=== PATIENT | female | born 1985 | race Caucasian/White ===

== ENCOUNTER 2017-09-06 17:35 | Emergency (ER) | payer MEDICARE, MEDICAID ==
--- NOTE | 2017-09-06 18:36 | RAD ---
Indication: Shortness of breath. 2 views of the chest demonstrate no mediastinal shift. Heart is of normal size and configuration. Lungs are clear. When compared to previous exam of June 16, 2013 no significant change is noted. IMPRESSION: No active cardiopulmonary disease is identified.
[2017-09-06 19:36] LABS: ABS Basophils 0.1 10^3/ul (0-0.2); ABS Eosinophils 0.1 10^3/ul (0-0.6); ABS Lymphocytes 3.8 10^3/ul (1.0-4.8); ABS Monocytes 0.4 10^3/ul (0-0.8); ABS Neutrophils 7.7 10^3/ul (1.5-7.7); ABS Nucleated RBC 0 10^3/ul; Eosinophil % 1.1 % (0-6); Hematocrit 43 % (35-47); Hemoglobin 14.7 g/dl (12.0-16.0); Lymphocyte % 31.3 % (25-47); Mean Corpuscular HGB Conc 34 g/dl (31-36); Mean Corpuscular Hemoglobin 29 pg (27-31); Mean Corpuscular Volume 85 fL (80-97); Mean Platelet Volume 9 um3 (7.4-10.4); Nucleated Red Blood Cells % 0; Platelet Count 243 10^3/ul (150-450); Red Blood Count 5.04 10^6/ul (4.0-5.4); Red Cell Distribution Width 14 % (10.5-15); White Blood Count 12.2 10^3/ul (3.5-10.8)
[2017-09-06 19:48] LABS: EGFR Non-African American 95.1 (>60)
--- NOTE | 2017-09-06 20:24 | ED ---
Aly Payton Gabriel, scribed for Jana Alexander MD on 09/06/17 at 2022 . Progress - Progress Note Progress Note: This patient was signed out from Dr. Causey, pending disposition, awaiting lab results. Lab results reveal no significant abnormalities. The patients condition is stable and will be discharged to home with Dx of atypical CP. Pt will follow up with their PCP. Re-Evaluation - Re-Evaluation First Eval Re-Evaluation Time: 20:21 Change: Improved Comment: The pt's CP has resolved. Course/Dx - Course Course Of Treatment: This patient was signed out from Dr. Causey, pending disposition, awaiting lab results. Lab results reveal no significant abnormalities. The patients condition is stable and will be discharged to home with Dx of atypical CP. Pt will follow up with their PCP. - Diagnoses Provider Diagnoses: Atypical chest pain The documentation as recorded by the Aly lomax Gabriel accurately reflects the service I personally performed and the decisions made by , Jana Alexander MD.
[2017-09-06 21:13] VITALS: BP 122/49
--- NOTE | 2017-09-07 16:07 | ED ---
Zen Payton Angela, scribed for Thor Causey MD on 09/06/17 at 1842 . HPI Chest Pain - HPI Summary HPI Summary: This pt is a 31 y/o female [facility] [place]/o intermittent chest pain for the past few weeks. Pt reports her pain is aggravated with lying down. She describes her chest pain as sharp. She denies any pain currently but states she feels like there is "something" sitting on her chest and has some SOB. Denies nausea or vomiting. PMHx: PE (last one was 4 years ago). Pt is currently on control pills. She is a current smoker. - History of Current Complaint Chief Complaint: EDChestWallPain Time Seen by Provider: 09/06/17 18:37 Hx Obtained From: Patient Hx Last Menstrual Period: 07/03/15 Onset/Duration: Started Weeks Ago, Still Present Timing: Intermittent, Lasting Weeks Current Severity: None Pain Intensity: 0 Pain Scale Used: 0-10 Numeric Chest Pain Location: Diffuse Chest Pain Radiates: No Character: Heaviness, Sharp/Stabbing - sharp Aggravating Factor(s): Nothing Alleviating Factor(s): Spontaneous Resolution Associated Signs and Symptoms: Positive: Chest Pain, Shortness of Breath. Negative: Nausea, Vomiting - Allergy/Home Medications Allergies/Adverse Reactions: Allergies Allergy/AdvReac Type Severity Reaction Status Date / Time sedatives AdvReac Severe Altered Uncoded 09/06/17 17:38 Mental Status narcotics AdvReac Intermediate See Comment Uncoded 09/06/17 17:38 PMH/Surg Hx/FS Hx/Imm Hx Endocrine/Hematology History: Reports: Other Endocrine/Hematological Disorders - history of PE Denies: Hx Anticoagulant Therapy, Hx Diabetes, Hx Thyroid Disease Cardiovascular History: Reports: Other Cardiovascular Problems/Disorders - HX OF PE Denies: Hx Congestive Heart Failure, Hx Hypertension, Hx Pacemaker/ICD Respiratory History: Reports: Hx Pulmonary Embolism, Other Respiratory Problems/ Disorders - PE 02/2013 Denies: Hx Asthma, Hx Chronic Obstructive Pulmonary Disease (COPD) GI History: Reports: Hx Gastroesophageal Reflux Disease History: Denies: Hx Renal Disease Musculoskeletal History: Reports: Other Musculoskeletal History - hip injury 2012 Sensory History: Reports: Hx Contacts or Glasses Opthamlomology History: Reports: Hx Contacts or Glasses Neurological History: Denies: Hx Dementia, Hx Seizures Psychiatric History: Reports: Hx Anxiety, Hx Attention Deficit Hyperactivity Disorder, Hx Eating Disorder - Anorexea, Hx Depression, Hx Post Traumatic Stress Disorder, Hx Bipolar Disorder, Hx Suicide Attempt, Hx of Violent Episodes Against Others, Hx Substance Abuse, Other Psychiatric Issues/Disorders - manic disorder, OCD - Immunization History Date of Tetanus Vaccine: within the last 4 yrs Infectious Disease History: No Infectious Disease History: Reports: History Other Infectious Disease - chlamydia Denies: Hx Hepatitis, Hx Human Immunodeficiency Virus (HIV), Traveled Outside the [place] in Last 30 Days - Family History Known Family History: Positive: Cardiac Disease, Hypertension, Diabetes - Social History Alcohol Use: None Substance Use Type: Reports: Cocaine Substance Use Comment - Amount & Last Used: twice per month Hx Tobacco Use: Yes Smoking Status (MU): Current Every Day Smoker Type: Cigarettes Amount Used/How Often: 1/3 PPD Length of Time of Smoking/Using Tobacco: began at 13 years old Have You Smoked in the Last Year: Yes Review of Systems Negative: Fever, Chills Positive: Chest Pain Positive: Shortness Of Breath Negative: Vomiting, Nausea Skin: Negative Neurological: Negative All Other Systems Reviewed And Are Negative: Yes Physical Exam - Summary Physical Exam Summary: VITAL SIGNS: Reviewed. GENERAL: Patient is an obese female who is lying comfortable in the stretcher with no distress. Patient is not in any acute respiratory distress. HEAD AND FACE: No signs of trauma. No ecchymosis, hematomas or skull depressions. No sinus tenderness. EYES: PERRLA, EOMI x 2, No injected conjunctiva, no nystagmus. EARS: Hearing grossly intact. Ear canals and tympanic membranes are within normal limits. MOUTH: Oropharynx within normal limits. NECK: Supple, trachea is midline, no adenopathy, no JVD, no carotid bruit, no c- spine tenderness, neck with full ROM. CHEST: Symmetric, no tenderness at palpation LUNGS: Clear to auscultation bilaterally. No wheezing or crackles. CVS: Regular rate and rhythm, S1 and S2 present, no murmurs or gallops appreciated. ABDOMEN: Soft, non-tender. No signs of distention. No rebound no guarding, and no masses palpated. Bowel sounds are normal. EXTREMITIES: FROM in all major joints, no edema, no cyanosis or clubbing. NEURO: Alert and oriented x 3. No acute neurological deficits. Speech is normal and follows commands. SKIN: Dry and warm Triage Information Reviewed: Yes Vital Signs On Initial Exam: Initial Vitals Temp Pulse Resp BP Pulse Ox 97.3 F 118 20 138/103 97 09/06/17 17:38 09/06/17 17:38 09/06/17 17:38 09/06/17 17:38 09/06/17 17:38 Vital Signs Reviewed: Yes Diagnostics - Vital Signs Vital Signs Temp Pulse Resp BP Pulse Ox 09/06/17 17:38 97.3 F 118 20 138/103 97 - Laboratory Lab Statement: Any lab studies that have been ordered have been reviewed, and results considered in the medical decision making process. - Radiology Chest XR Xray Interpretation: No Acute Changes - IMPRESSION: No active cardiopulmonary disease is identified. Dr. Causey has reviewed this radiology report. Radiology Interpretation Completed By: Radiologist - EKG 17:39 Cardiac Rate: NL EKG Rhythm: Sinus Rhythm - at 99 bpm EKG Interpretation: No ST elevation. Normal axis. Chest Pain Course/Dx - Course Assessment/Plan: This pt is a 31 y/o female presenting to [facility] c/o intermittent chest pain for the past few weeks. Pt reports her pain is aggravated with lying down. She describes her chest pain as sharp. She denies any pain currently but states she feels like there is "something" sitting on her chest and has some SOB. Denies nausea or vomiting. PMHx: PE (last one was 4 years ago). Pt is currently on control pills. She is a current smoker. The pt is an obese female with history of PE and she has a stabbing chest pain associated with SOB and palpitations. She is currently asymptomatic at this time , although she feels pressure on her chest. Therefore we will order blood work. Chest XR is negative and EKG shows no ST elevation. The blood work is pending therefore the pt will be signed out to Dr. Alexander to follow up on the blood work results and further work up and management. - Diagnoses Provider Diagnoses: Chest pain, rule out PE Discharge - Discharge Plan Condition: Stable Disposition: OTHER Discharge Disposition Comment: signed out to Dr. Alexander, pending dispo, awaiting lab results Referrals: Davion Sellers [employer] [Primary Care Provider] - The documentation as recorded by the Zen lomax Angela accurately reflects the service I personally performed and the decisions made by me, Thor Causey MD.
== END 2017-09-06 21:18 ==
LOC: ED 17:35
DX: R07.9 Chest pain, unspecified (principal); R06.02 Shortness of breath; F17.210 Nicotine dependence, cigarettes, uncomplicated; Z86.711 Personal history of pulmonary embolism
CPT/HCPCS: 36415; 71046; 80053; 82550; 82553; 83605; 84443; 84484; 85025; 85379; 93005; 99283